=== PATIENT | male | born 2000 | race Caucasian/White ===

== ENCOUNTER 2020-02-20 14:33 | Outpatient (CLI) | payer MEDICAID, SELFPAY ==
[2020-02-21 21:46] LABS: COVID-19 RT-PCR Result NEGATIVE (Negative)
== END 2020-02-20 14:53 ==
PROVIDERS: PCP Pediatrics; Visit Provider Nurse Practitioner Pediatrics
DX: Z11.52 Encounter for screening for COVID-19 (principal)
CPT/HCPCS: U0003